=== PATIENT | female | born 1990 | race Asian ===

== ENCOUNTER 2024-03-17 00:20 | Emergency (ER) | payer OTHER ==
[~2024-03-17] VITALS: Ht 182.9 cm; Wt 80.9 kg
[2024-03-17] MEDS: SODIUM CHLORIDE 0.9% 1,000 ML IV ONE (01:36)
[2024-03-17] MEDS: ONDANSETRON HCL 4 MG/2 ML VIAL IVP ONE ×2 (01:36→05:13)
[2024-03-17] MEDS: DIPHENOXYLATE/ATROP 2.5-0.025 MG TABLET PO ONE (01:36)
[2024-03-17 01:40] LABS: HEMOGLOBIN 15.4 g/dL (12.0-16.0); LYMPHOCYTES # (AUTO) 0.4 K/uL (1.0-4.8); MONOCYTES # (AUTO) 1.1 K/uL (0.1-1.0); MONOCYTES % (AUTO) 3.5 % (2.0-9.0); RED CELL DISTRIBUTION WIDTH 12.9 % (11.5-14.5)
[2024-03-17 01:43] LABS: BASOPHILS % (AUTO) 0.3 % (0.0-2.0); EOSINOPHILS % (AUTO) 0.1 % (1.0-6.0); HEMATOCRIT 45.2 % (36-46); LYMPHOCYTES % (AUTO) 1.2 % (22.0-44.0); MEAN CORPUSCULAR VOLUME 97 fL (80-100); NEUTROPHILS # (AUTO) 30.2 K/uL (1.8-7.7); PLATELET COUNT (AUTO) 418 K/uL (150-450); RED BLOOD CELL COUNT(AUTO) 4.66 MIL/uL (4.00-5.20)
[2024-03-17 01:48] LABS: CALCIUM, TOTAL 9.8 mg/dL (8.8-10.5); CREATININE 1.47 mg/dL (0.60-1.30); POTASSIUM 3.9 mmol/L (3.5-5.1)
[2024-03-17 02:03] LABS: NEUTROPHILS % (AUTO) 94.9 % (40.0-70.0)
[2024-03-17 02:06] LABS: WHITE BLOOD COUNT (AUTO) 31.8 K/uL (4.5-11.0)
[2024-03-17] MEDS: SODIUM CHLORIDE 0.9% 2,450 ML IV ONE ×2 (02:20→05:13)
[2024-03-17 03:15] LABS: LACTIC ACID 1.4 mmol/L (0.4-2.0)
[2024-03-17 04:13] LABS: PH,URINE DRUG SCREEN 5.5 (5.0-8.0)
[2024-03-17 04:14] LABS: APPEARANCE,URINE CLEAR (CLEAR); BILIRUBIN,URINE NEGATIVE (NEGATIVE); COLOR,URINE YELLOW (YELLOW); GLUCOSE, URINE (UA) NEGATIVE (NEGATIVE); KETONES,URINE 40-60 mg/dL (NEGATIVE); LEUKOCYTE ESTERASE ,URINE NEGATIVE (NEGATIVE); NITRATE,URINE NEGATIVE (NEGATIVE); OCCULT BLOOD,URINE SMALL (NEGATIVE); PH,URINE 5.5 (5.0-8.0); PROTEIN,URINE 30-70 mg/dL (NEGATIVE); SPECIFIC GRAVITIY, URINE 1.031 (1.003-1.030); UROBILINOGEN,URINE <=1.0 mg/dL (<=1.0)
[2024-03-17 04:25] LABS: BACTERIA,URINE None Seen /HPF (None Seen); SQUAMOUS EPITHELIAL CELL,UR Few /LPF (None Seen); WBC,URINE None Seen /HPF (0-5)
[2024-03-17 04:27] LABS: ALCOHOL, URINE DRUG SCREEN NEGATIVE (NEGATIVE); AMPHET/METH SCREEN,URINE NEGATIVE (NEGATIVE); BARBITURATE SCREEN, URINE NEGATIVE (NEGATIVE); BENZODIAZEPINES SCREEN,URINE NEGATIVE (NEGATIVE); CANNABINOID SCREEN,URINE POSITIVE (NEGATIVE); COCAINE SCREEN,URINE NEGATIVE (NEGATIVE); METHADONE SCREEN, URINE NEGATIVE (NEGATIVE); OPIATE SCREEN,URINE NEGATIVE (NEGATIVE); PHENCYCLIDINE SCREEN,URINE NEGATIVE (NEGATIVE)
[2024-03-17 06:52] VITALS: BP 100/67; PULSE 65; RESP 15; TEMP 98.6; O2SAT 98
== END 2024-03-17 06:23 | disposition short-term general hospital (02) ==
LOC: EMS 00:21
DX: E86.0 Dehydration (principal); R19.7 Diarrhea, unspecified; R11.2 Nausea with vomiting, unspecified; F12.90 Cannabis use, unspecified, uncomplicated; F17.210 Nicotine dependence, cigarettes, uncomplicated; F41.9 Anxiety disorder, unspecified; F32.A Depression, unspecified; F64.0 Transsexualism
CPT/HCPCS: 99285; 96374; 96361; 71045; 80048; 83605; 83690; 85025; 96376; 80307; 81001; 36415; J2405; J7030; 96375